=== PATIENT | female | born 1970 ===

== ENCOUNTER 2021-08-02 09:36 | Outpatient (CLI) | payer BC, SELFPAY ==
--- NOTE | 2021-08-02 09:15 | DI.RAD_ITS ---
Exam(s) XR HIP LT COMPLETE AP PELVIS EXAM: XR HIP LT COMPLETE AP PELVIS CLINICAL HISTORY: preoperative evaluation TECHNIQUE: COMPARISON: CR ORTHO HIP LEFT 1VIEW from 11/10/2019 FINDINGS: Three views were obtained. There are 3 fixation screws in the intertrochanteric portion of the left femur. There is marked deformity of the femoral head and neck. No acute fracture or dislocation efrain ntified. There are severe degenerative changes of the left hip. Mild degenerative changes of the ri ght hip noted as well. IMPRESSION: RADIATION DOSE DELIVERED: Total DLP
== END 2021-08-02 09:37 | disposition home or self-care (01) ==
LOC: DIORS 09:37
PROVIDERS: PCP Registered Nurse; Referring Provider Registered Nurse; Visit Provider Physician Assistant Surgical
DX: Z01.818 Encounter for other preprocedural examination (principal); M16.12 Unilateral primary osteoarthritis, left hip
CPT/HCPCS: 73502

== ENCOUNTER 2021-09-09 03:33 | Outpatient (CLI) | payer BC, SELFPAY ==
[2021-09-09 11:36] LABS: HCT 39.4 % (36.0-46.0); HGB 12.7 g/dL (11.2-15.7); MCH 28.7 pg (27.0-33.0); MCHC 32.2 % (32.0-36.0); MCV 89 fL (80-95); MPV 10.8 fL (8.0-11.0); Platelet Count 199 10^3/uL (130-400); RBC 4.42 10^6/uL (3.93-5.22); RDW 12.9 % (11.7-14.6); RDW-SD 42.1 fL; WBC 7.07 10^3/uL (4.4-10.8)
[2021-09-09 12:09] LABS: Source Nasal/Nares
[2021-09-09 12:25] LABS: Anion Gap 5.7 mmol/L (3-11); BUN 18 mg/dL (7-18); CO2 30.3 mmol/L (21.0-32.0); Calcium 9.3 mg/dL (8.5-10.1); Chloride 104 mmol/L (98-107); Estimated GFR 58.22 (mL/min/1.73m2); Glucose 157 mg/dL (74-106); Sodium 140 mmol/L (136-145)
[2021-09-09 14:46] LABS: COVID-19 PCR Negative (Negative)
== END 2021-09-09 03:34 | disposition home or self-care (01) ==
LOC: LBO 03:33
PROVIDERS: PCP Registered Nurse; Visit Provider Student in an Organized Health Care Education/Training Program
DX: M25.552 Pain in left hip (principal); M16.12 Unilateral primary osteoarthritis, left hip; Z20.822 Contact with and (suspected) exposure to COVID-19; Z01.818 Encounter for other preprocedural examination; Z01.812 Encounter for preprocedural laboratory examination
CPT/HCPCS: 36415; 80048; 85027; 87635

== ENCOUNTER 2021-09-09 03:58 | Outpatient (CLI) | payer BC, SELFPAY | END 2021-09-09 03:59 | disposition home or self-care (01) | LOC: LBO 03:58 | PROVIDERS: PCP Registered Nurse; Visit Provider Student in an Organized Health Care Education/Training Program ==

== ENCOUNTER 2021-09-10 07:49 | Inpatient (IN) | payer BC, SELFPAY ==
[2021-09-10] VITALS (21 sets, daily range): BP systolic 116–159; BP diastolic 51–107; PULSE 74–115; RESP 12–26; TEMP 36.2–37.6; O2SAT 93–100; BMI 44.1
--- NOTE | 2021-09-10 | DI.RAD_ITS ---
Exam(s) XR HIP LT AP LAT ONLY EXAM: XR HIP LT AP LAT ONLY CLINICAL HISTORY: s/p L RHONDA. TECHNIQUE: 2D digital imaging was performed. Three images were obtained. AP and lateral views were obtained. COMPARISON: CR XR HIP LT COMPLETE AP PELVIS from 08/02/2021 FINDINGS: BONES: The patient is now status post left total hip replacement. No fracture or dislocation. JOINTS: The orthopedic hardware is in good position. SOFT TISSUE: Normal. IMPRESSION: Status post left THR. DATA REPOSITORY: RADIATION DOSE DELIVERED:
[2021-09-10] MEDS: Celecoxib 200 MG CAP 400 MG PO (07:44)
[2021-09-10] MEDS: Acetaminophen 500 MG TAB 1000 MG PO (07:44)
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
[2021-09-10] MEDS: Lactated Ringers 1,000 ML 80 ML IV ×3 (08:31→21:11)
[2021-09-10] MEDS: ceFAZolin 2 GM/50 ML BAG IVPB (11:05)
[2021-09-10] MEDS: Tranexamic Acid 1,000 MG/10 ML VIAL 1000 MG (15:06)
--- NOTE | 2021-09-10 16:20 | ROE_ITS ---
Date of service: 09/10/21 Time of Service: 16:20 Operative Note Operative Note DATE OF PROCEDURE: 09/10/21 PRE-OP DIAGNOSIS: Left Hip Arthritis with Deformity and Hardware POST-OP DIAGNOSIS: same PROCEDURE: Left posterior hip replacement with removal of hardware requiring secondary dissection and intraoperative navigation. SURGEON: Marco Antonio Becker WIG SALES CONSULTANT: Karolina Lundy ANESTHESIA TYPE: General LMA/ETT Refer to Anesthesia Record ESTIMATED BLOOD LOSS: 1,500 PATHOLOGY: none sent TOURNIQUET TIME: 0 COMPLICATIONS: None Patient was transported to: PACU Patient's condition: stable Implants: 1. Depuy Bimentum Dual Mobiliity Acetabular Component, 49mm 2. Depuy Bimentum [id number] Acetabular Liner 3. Depuy Corail 125 Standard Stem, Size 11 4. Depuy Altrex Ceramic Femoral Head, 28+1.5mm Indications: Luna is a 50-year-old who has had debilitating pain from her left hip with notable deformity and shortening of the left leg. 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 She has been having worsening pain about the left hip with notable arthritis and deformity. She is having difficulty functioning with daily activities and therefore I did offer hip replacement. I reviewed the risk of the procedure to include bleeding, infection, pain, stiffness, damage to nerves and vessels, damage to muscle and tendons. I also discussed the complexity of removing this hardware which has little data about how to remove it except for some case reports about it being very difficult and challenging. This is increase the risk for fracture of the femur. Additionally, the deformity of her femoral head and neck also leads increased difficulties with component placement and increasing risk of instability therefore prompting me to use a dual mobility component. Findings: The 3 Horner pins were difficult to identify. There was significant bony overgrowth over the edge of the pins. However, these were not identified and bones around the heads of the pin was cleared. A posterior hip approach was then performed. This was challenging given the significant deformity of the femoral head and his close proximity to the greater trochanter. With the hip dislocated the bone was removed and the pins were identified. They were then manually backed out from inside the hip and then backed out the remainder of the way from the lateral femur. This process took multiple iterations it was very challenging. A posterior hip was then performed with a dual mobility acetabulum. Procedure Description: Luna was greeted in the preoperative holding area. The identity was confirmed with the correct site and side. The consent was reviewed with the patient and signed. History and physical was updated. The patient was taken back to the operating room. A general anesthetic was administered. The patient was then positioned into the right lateral decubitus position for access to the left hip. All bony prominences well-padded. The patient was secured with foam hip positioner pads. The left hip was prepped with ChloraPrep and draped in a standard fashion. A secondary prep was then performed on the left hip prior to placement of Ioband. Prophylactic antibiotics in the form of Cefazolin were administered. A timeout was performed for safe surgery. An approximately 14 cm incision was made overlying the posterior lateral hip, posterior to the previous incision for her slipped capital femoral epiphysis. This was centered over the vastus ridge equally proximal to the tip of the grea ter trochanter as well as distal. The skin was incised sharply. Bleeding was stopped with light cautery. The iliotibial band was identified and cleared for better visualization. The iliotibial band was then incised longitudinally extending into the gluteus fascia and extending distally along the IT band. This was split bluntly and a Charnley retractor was inserted. We had excellent visualization of the lateral femur and the trochanteric bursa. There was notable bursitis with an enlarged and inflamed bursa. This was excised sharply with electrocautery and remnants debrided with a rongeur. C-arm fluoroscopy then utilized to identify the starting point for the 3 Horner pins. Once was identified the vastus fascia was incised and elevated distally, anteriorly, posteriorly. There is a complete coverage of bone in this area. Using the CT scan as a guide as well as the intraoperative fluoroscopy, I removed bone with a rongeur as well as curettes and osteotomes. I was able to identify the 3 Horner pins heads. However, this required significant time and was quite difficult given the thickness of bone, more than 4 to 5 mm in spots, over the pins head. There is also significant bleeding at this time with elevated blood pressures and bleeding from the muscle bellies and bone around these pins. Once the pin heads were identified bone from around the heads was cleared using curette and osteotome. Once the heads of these pins were fully identified the space around I then proceeded to the intra-articular portion of the case. The leg was brought into some internal rotation and the capsule torsional rotators were elevated off of the posterior lateral aspect of the femur. The capsule was incised and was quite thickened. The head was located almost adjacent to the trochanter with a short neck. There is notable deformity of the femoral head neck in this region. The capsule was fully incised so that the hip was fully dislocated. An elevator was placed underneath the proximal femur and the neck cut was initiated based on preoperative templating. It was carried through the posterior half of the neck until encountering the pins. I then used a series of osteotomes and rongeur to remove bone from around the pins himself to expose the pins. Bone was removed from the interdigitation of the threads on the pin. I then used vice recruitment and outreach assistant and screw removal hardware to grab onto the threaded pins and slowly rotate them, breaking adhesions to the bone and eventually being able to advance them out the lateral femur from within the hip space. This was continued until all 3 were backed out sufficiently. The hip was then externally rotated to access the heads of the pins in the lateral femur and remove them by slowly turning them counterclockwise. All 3 pins were able to be removed in this fashion without notable defect. Some bone from the femoral head and the osteophytes from around the femoral head and neck then used to fill some the defects in the lateral femur from the Horner pins. The leg was then brought back into a position of internal rotation and flexion and the femoral neck cut was visualized. The posterior portion of the neck had gotten somewhat damage from removal of the pins and the neck was left where is. Bone from the anterior neck was removed as these were large osteophytes. Another osteophytes were also removed. The lateral neck rent was also removed. While protecting the abductors. The leg was brought back to neutral position and the acetabular was exposed. The labrum was removed. Contrast from the cotyloid fossa was often removed. There is a large floor osteophyte. Starting with a 43 mm acetabular reamer from the Bimentum hip system. This was reamed down to the true floor. Reaming was then sequentially increased by 2 mm until there was excellent rim fit, 49 mm. The 49 mm Bimentum acetabular component was then opened on the back table. A portion of the peritoneal cocktail, which consisted of epinephrine, ropivacaine, clonidine, and ketorolac was then injected around the acetabulum. I made sure there is no soft tissue interposition around the rim of the acetabulum. The acetabular component was th en impacted maintaining about 45 degrees of abduction and about 15 degrees of anteversion. This had excellent purchase and the geotechnician was removed. Attention was then turned to the femur. At the femur At 90 degrees of internal rotation and some flexion as well as adduction and I had asked exposure of the proximal femur. A canal probe was inserted to ensure correct passage to the femoral canal. A box ostium was then utilized to create a starting position. The lateral neck remnant was removed with a rongeur and lateralization was performed with a rasp broach handle. I then started with a size 8 Corail broach. I sequentially broached to a size 11 making sure to maintain approximately 20 to 25 degrees of anteversion. Excellent purchase of the size 11. Based on the template I did place a 125 degree standard neck with a +1.5 head and a matching 49 x 28 acetabular trial. There was then reduced with good stability no shock. Previous x-ray of the hip was performed with the C arm for use in the [employer] hip navigation system. X-rays once again brought in and obtained for comparison to the previous x-ray and then integration into the computer system for determination of leg lengths and offset. Unfortunately, visualization was challenging. The computer system did seem to indicate that we had correctly improved the offset and increased leg length by about 10 mm. The legs were also checked resting against each other which seem to come close to recreating appropriate leg length. While this was going on the hip was irrigated with Surgiphor Betadine solution where it sat for at least 3 minutes and was irrigated with saline. Hip was then dislocated and the broach handle was removed. A portion of the periarticular cocktail was injected around the proximal femur. The size 11 DePuy Corail 125 degree standard stem was then inserted. The dual mobility system was assembled on the back table and then impacted onto the clean and dried trunnion. The hip was then reduced. With hip and some external rotation the posterior soft tissues and sore external rotators and capsule were then approximated and taken through drill holes on the posterior edge of the proximal femur. Further reapproximation of the capsule was performed to the edge of the abductor tendons. This was performed a #5 Ethibond. The holes from the nose pins over the lateral femur were inspected and any defect was filled with bone obtained during the surgery. These were impacted. The vastus lateralis fascia was then closed with a #1 Vicryl. The wound was once again thoroughly irrigated and the remnant of the peritoneal cocktail was injected into the soft tissues, periosteum, deep tissues, subcutaneous tissues, muscles. The child retractor was placed above the IT band and gluteus fascia's and the IT band and gluteus fascia was closed with a #0 Vicryl and a #2 STRATAFIX. The proximal aspect of the fascia is unable be closed as it was too tight and therefore was only closed just proximal to the tip the greater trochanter. Deep tissues were closed with 0 Vicryl and 2-0 Vicryl followed by a 3-0 Monocryl. The wound was reinforced with skin glue and Steri-Strips followed by Mepilex silver dressing. At the end the case there is no significant bleeding. There is no notable complications except for increased duration for removal of this pins with the increased blood loss. She was awake from anesthesia and transferred back to the hospital bed. A abductor pillow was placed while she is still recovering from anesthesia. I will check a x-ray and hemoglobin in the PACU to ensure the hip was reduced and her blood loss has not resulted in significant anemia. She will be admitted to the hospital for observation and pain control along with physical therapy in the morning she is weightbearing as tolerated with the only precaution to keep the knees wide in the hips.
[2021-09-10] MEDS: fentaNYL 100 MCG/2 ML VIAL IVP ×2 (17:05→17:12)
[2021-09-10] MEDS: LORazepam 20 MG/10 ML VIAL IVP ×2 (17:18→19:24)
[2021-09-10 17:21] LABS: HCT 36.6 % (36.0-46.0); HGB 12.4 g/dL (11.2-15.7)
--- NOTE | 2021-09-10 17:57 | W.ANESPOSTOP ---
Postoperative Evaluation Date, Time and Location Date Performed: 09/10/21 Time Performed: 17:57 Patient Location: PACU Vital Signs Most Recent Imported Vital Signs: Most Recent Vital Signs Temp Pulse Resp BP Pulse Ox 36.8 C 90 14 125/87 93 09/10/21 17:35 09/10/21 17:35 09/10/21 17:35 09/10/21 17:35 09/10/21 17:35 Pain Score Most Recent Pain Score: Most Recent Pain Score Pain Level 5 09/10/21 17:35 Assessment Mental Status: Arousable with meaningful communication Airway and Respiratory Function: Patent airway with normal (patient baseline) respiratory exam Cardiovascular Function: Hemodynamically Stable Hydration Status: Adequately Hydrated Nausea & Vomiting: No Nausea or Vomiting Pain: Pain is Moderate or Severe Postoperative Pain Management: Pain being addressed with medication Peripheral Nerve Block: Patient did not receive a nerve block Postoperative Comments:: lorazapam/fentanyl/ketamine given from pain.
[2021-09-10] MEDS: ceFAZolin 1 GM/50 ML BAG IVPB (18:55)
[2021-09-10] MEDS: HYDROmorphone 2 MG/ML VIAL IVP ×4 (18:58→19:36)
[2021-09-10] MEDS: Omeprazole 20 MG CAPCR PO (21:12)
[2021-09-10] MEDS: Celecoxib 200 MG CAP PO (21:12)
[2021-09-10] MEDS: oxyCODONE 5 MG TAB PO (21:12)
[2021-09-10] MEDS: Gabapentin 300 MG CAP PO (22:37)
[2021-09-11] VITALS (12 sets, daily range): BP systolic 92–146; BP diastolic 58–88; PULSE 81–120; RESP 14–18; TEMP 36.9–38.3; O2SAT 94–98
[2021-09-11] MEDS: HYDROmorphone 2 MG/ML SYR 1 MG IVP ×2 (00:26→06:37)
[2021-09-11] MEDS: ceFAZolin 1 GM/50 ML BAG IVPB ×2 (01:46→09:59)
[2021-09-11] MEDS: oxyCODONE 5 MG TAB PO ×2 (01:47→05:51)
[2021-09-11 06:54] LABS: HGB 9.3 g/dL (11.2-15.7); MCH 29.3 pg (27.0-33.0); MCHC 33.2 % (32.0-36.0); MCV 88 fL (80-95); MPV 10.6 fL (8.0-11.0); Platelet Count 183 10^3/uL (130-400); RBC 3.17 10^6/uL (3.93-5.22); RDW-SD 41.9 fL; WBC 12.05 10^3/uL (4.4-10.8)
[2021-09-11 07:05] LABS: Anion Gap 6.8 mmol/L (3-11); BUN 22 mg/dL (7-18); CO2 28.2 mmol/L (21.0-32.0); Calcium 8.5 mg/dL (8.5-10.1); Chloride 100 mmol/L (98-107); Estimated GFR 58.22 (mL/min/1.73m2); Glucose 166 mg/dL (74-106); Potassium 4.4 mmol/L (3.5-5.1); Sodium 135 mmol/L (136-145)
--- NOTE | 2021-09-11 07:30 | W.PM.PROGNOT ---
Date of Service Date of service: 09/11/21 Time of Service: 07:30 Assessment and Plan Assessment and plan (1) Chronic pain: Status: Chronic Assessment and plan: Continue with home methadone dose. Her chronic pain, especially of her lower back and associated with fibromyalgia will lead to some increased difficulty with treating the acute pain from surgery. We will continue to treat with multi modalities. (2) Anxiety disorder: Status: Acute Assessment and plan: We will consider the use of Valium to help treat some of her anxiety along with pain and spasms. (3) Osteoarthritis of left hip: Status: Acute Assessment and plan: Status post hardware removal and left hip replacement via posterior approach. No acute complications appreciated this morning. Sciatic nerve function is intact which is the greatest concern given the lengthening performed and the posterior approach. Her pain is more global around the hip and likely related to soft tissue stretching and injury from the surgery itself including position or placement. I do expect this all to slowly improve. She is weightbearing as tolerated. Her only precaution is to keep the knees wider than the hips. Physical therapy consult today. Aspirin 81 mg twice daily for DVT prophylaxis. Complete 3 doses of postoperative cefazolin. (4) Postoperative pain, acute, hip: Status: Acute Assessment and plan: Luna reports 10 out of 10 pain. She also has significant pain behaviors likely associate with chronic pain and anxiety. At this point, I am going to increase how we are treating her pain. I am going to add on Valium 5 mg p.o. Additionally, I will switch her Celebrex to ketorolac IV. I will also increase her hydromorphone dose and increase her oxycodone dose. There is a potential for sedation for which she should be monitored. However, I am hoping that we can treat this pain more aggressively and then transition to a less aggressive home pain control protocol. (5) Acute blood loss anemia: Status: Acute Assessment and plan: Hemoglobin dropped to 9.7. Still stable hemodynamically. However, given the acute drop I will perform a type and screen today and schedule a redraw of her hemoglobin at 1600. Subjective Subjective Interval history since last seen: Luna reports significant pain. She describes the entire left leg is hurting in addition to her neck and her back. When asked more specifically she says the joint pointing to an area anteriorly and slightly superiorly. She does report numbness and tingling although not specific. Per nurse report, she was tense and somewhat distraught overnight waxing and waning with medications. However, tolerated the maximum medications without significant improvement nor ill effects. Exam Narrative Exam Narrative: Laying supine in the hospital bed. Left leg is appropriate position with no significant malrotation and of appropriate length. Leg lengths appear to be equal. Dressing about the left lower extremity is clean dry and intact. There is some ecchymosis seen over the ASIS with sensitivity over the anterior hip muscles and the lower aspect of the abdomen. She is extremely tense and is unable to relax for any real evaluation of her left hip. However, I am able to demonstrate 30 degrees of internal rotation and 20 degrees of external rotation and 70 degrees of flexion although she is guarding for the entire exam. She endorses full sensation over the femoral nerve anesthetic nerve distributions. She is able demonstrate active great toe extension and ankle dorsiflexion as well as flexion and eversion of the ankle. Objective Last Vital Signs Temp 37.2 C 09/11/21 04:05 Pulse 102 H 09/11/21 02:44 Resp 16 09/11/21 04:05 BP 145/77 H 09/11/21 02:44 Pulse Ox 95 09/11/21 04:05 Laboratory Results - last 24 hr 09/10/21 09/11/21 09/11/21 17:05 06:30 06:30 WBC 12.05 H RBC 3.17 L Hgb 12.4 9.3 L D Hct 36.6 28.0 L MCV 88 MCH 29.3 MCHC 33.2 RDW 13.0 Plt Count 183 MPV 10.6 Sodium 135 L Potassium 4.4 Chloride 100 Carbon Dioxide 28.2 Anion Gap 6.8 BUN 22 H Creatinine 1.0 Estimated GFR/1.73 m2 58.22 Glucose 166 H Calcium 8.5
[2021-09-11] MEDS: Acetaminophen 500 MG TAB 1000 MG PO ×3 (07:48→21:23)
[2021-09-11] MEDS: Aspirin E.C. 81 MG TABEC PO ×2 (07:49→21:23)
[2021-09-11] MEDS: Normal Saline Flush 10 ML SYR IV ×4 (07:49→14:24)
[2021-09-11] MEDS: Dexamethasone 4 MG/ML VIAL IVP (07:49)
[2021-09-11] MEDS: diazePAM 5 MG TAB PO ×2 (07:49→17:29)
[2021-09-11] MEDS: Lisinopril 10 MG TAB PO (07:49)
[2021-09-11] MEDS: Docusate Sodium 100 MG CAP PO ×2 (07:49→21:23)
[2021-09-11] MEDS: Omeprazole 20 MG CAPCR PO ×2 (07:49→21:23)
[2021-09-11] MEDS: Ketorolac 15 MG/ML VIAL IVP ×3 (08:23→21:24)
[2021-09-11] MEDS: Normal Saline 1,000 ML 125 ML IV (08:23)
--- NOTE | 2021-09-11 09:47 | PT.INIE ---
Date of service: 09/11/21 Time of Service: 09:47 PT Notes Visit Reasons: Left hip DJD Physical Therapy Inpatient Initial Evaluation Date: 09/11/2021 Referring Doctor: Marco Antonio Becker MD PT Orders: PT CONSULT: Eval/Treat Precautions: Fall. Standard. WBAT on L LE with AD. 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 She is diagnosed with osteoarthritis of the left hip and is status post hardware explant and left total hip replacement (posterior approach) on postoperative day 1. PMHX: Medical History?(Updated 08/07/21 @ 06:46 by Marco Antonio Becker MD) Atrophic vaginitis Breast lump Sleep disorder Social History/Home Situation: Lives with in [place] with no steps to enter. Modified independent with FWW for all mobility ADLs. Occasionally uses the SPC as tolerated. Equipment Owned/DME: FWW, SPC Subjective: Patient reports 8-9/10 pain at rest, subsided with walking. States that in the old house they had a lot of stairs and she has fallen 5-6x on them over the past year. Agreeable to slowly getting out of bed with PT. Nurse Corry came in to give Oxycodone for patient prior to walking. Objective: General Observation: Supine in bed. IV access in R UE. TEDS in B legs. Cold pack to L hip. Mental Status: Alert and oriented as to person, place, time, and purpose. Able to pay attention, focus, and respond appropriately. Pain: 8-9/10 in L hip Vital Signs: WNL as closely monitored by nursing staff ROM: Right Lower Extremity: Hip flexion WFL. Hip abduction WFL. Knee flexion WFL. Ankle dorsiflexion WFL. Ankle plantarflexion WFL. Left Lower Extremity: Hip flexion lacks about 50% of AROM due to pain. Hip abduction lacks about 50% of AROM due to pain. Knee flexion WFL. Ankle dorsiflexion WFL. Ankle plantarflexion WFL. Strength: Right Lower Extremity: Hip flexors 5/5. Hip abductors 5/5. Knee flexors 5/5. Knee extensors 5/5. Ankle dorsiflexors 5/5. Ankle plantarflexors 5/5. Left Lower Extremity: Hip flexors 3-/5. Hip abductors 3-/5. Knee flexors 4/5. Knee extensors 4-/5. Ankle dorsiflexors 5/5. Ankle plantarflexors 5/5. Bed Mobility/Transfers: Supine to sit minimal assist to L LE, HOB at 45 degrees Sit to stand from EOB contact guard assist, bed height increased to minimize pain Stand to sit contact guard assist Bed to bedside commode contact guard assist Bed to reclining chair contact guard assist Gait: Instructed patient with level surface ambulation of 80 feet feet requiring contact guard assist with wheelchair follow. Christelle decreased. Gait antalgic. Able to stand and push down on walker half of the time and then leans forward onto walker handle to off load L hip due to pain the rest of the time as she gets tired. No increase in pain level with walking. Denies headache, chest pain, and dizziness throughout. Step-to gait pattern. Balance: Static Sitting: Normal Dynamic Sitting: Good Static Standing: Fair Dynamic Standing: Fair Special Tests: Mobility Limitations Standardized Measure [facility] AM-PAC 6 clicks Basic Mobility Inpatient Short Form: Raw Score: 14 CMS Score: 16% deficit Informed Consent/Education: Patient was instructed in purpose of PT consult and plan of care. Agreeable to proceed with established PT POC to achieve personal goals. Assessment: Pain intensity and chronic neck/back pain limiting mobility performance. Will require pre-medication for PT sessions. Will assess need for platform walker this afternoon. Patient presents with clinical signs and symptoms consistent with current/admitting diagnoses that have resulted to mobility limitations, gait instability, generalized weakness, and overall ADL decline as demonstrated by the following impairment level findings: 1. Decreased strength to L hip major muscle groups 2. Impaired sitting/standing balance 3. Impaired activity tolerance 4. Limitation of joint range of motion in L hip 5. Pain in L hip 6. Anxiety Impairments are contributing to the following functional limitations: 1. Decline in bed mobility skills 2. Decline in transfer skills 3. Difficulty with ambulation without assistive device and physical assistance 4. Increased completion time for mobility ADL performance 5. Increased risk for falls 6. Difficulty with managing steps alone safely Patient is assessed as a 96428 moderate complexity based on the following: History: 50-year-old female with past medical history as indicated above Examination: Demonstrable impairment in strength, balance, and mobility level with underlying impairments and functional limitations as exhibited above as well as deficit score of 61% utilizing the [facility] Mobility Inpatient Short Form Presentation: Evolving Decision Makin moderate complexity Goals: Goals X1 week 1. Supine-Sit independent 2. Sit-Supine independent 3. Sit-Stand independent 4. Stand-Sit independent with FWW 5. Bed-Chair independent with FWW 6. Chair-Bed independent with FWW 7. Independent gait on level surface with use of FWW for at least 300 feet without report of pain nor dyspnea 9. Good static and dynamic standing balance/tolerance Plan of Care/Treatment Plan: 1-2x/day, 7 days/week x 1 week. Plan of care has been reviewed with the IMPORT CUSTOMER SERVICE MANAGER providing the service under Physical Therapy direction. Initiate Physical Therapy intervention for pain management as needed, strengthening, bed mobility, transfers, gait, stairs, balance training, and use of assistive device. DISCHARGE RECOMMENDATIONS: [] Home with no services [] [X] Home with services. Home when medically cleared by orthopod. Patient will benefit from home health PT services in order to progress mobility level using least restrictive assistive ambulatory device, assess home safety, identify additional equipment needs, and establish a functional maintenance program that will increase ability of patient to remain at home. [] Home with outpatient PT [] [] SNF for continued rehabilitation [] [] [facility] [] [] SNF versus LTC based on ability to participate and progress [] TREATMENT CODE/TIME: 92407 x 25 minutes, 45046 x 15 minutes beginning at 9:47 AM. Thank you for the opportunity to participate in the care of this patient. Maggie Rivera PT, DPT, CLT [facility] [place], [place]
[2021-09-11] MEDS: oxyCODONE 10 MG TAB 20 MG PO (09:58)
[2021-09-11] MEDS: Methadone Liquid 10 MG/ML 50 MG PO (10:35)
--- NOTE | 2021-09-11 10:48 | INITIAL_ITS ---
- If Service Date Differs Date of service: 09/11/21 Time of Service: 10:48 Care Management Initial Assess REASON FOR HOSPITALIZATION:: left posterior hip replacement PAST MEDICAL HISTORY/PAST SURGICAL HISTORY:: Medical History (Updated 08/07/21 @ 06:46 by Marco Antonio Becker MD). Retained orthopedic hardware (Acute). Osteoarthritis of left hip (Acute). Fibromyalgia (Acute). 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 GERD (gastroesophageal reflux disease) (Chronic). COPD (chronic obstructive pulmonary disease) (Chronic). Asthma (Chronic). Chronic pain (Chronic). Depressive disorder (Chronic). Anxiety disorder (Acute). Severe obesity (Acute) PREVIOUS FUNCTIONAL STATUS/SOCIAL/FAMILY SUPPORTS:: Luna lives in an apartment in [place], [place] with her Tyler and one of their sons and a grandson and granddaughter. They also have another son who has children. 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 She uses a cane and a walker and does not receive any community services. CURRENT FUNCTIONAL STATUS:: Luna was sitting up in a chair when CM met with her. She was pleasant in interactiuon and agreeable to conversation. Luna sh ared some of her medical history and the challenges that she has had with the pain and ambulatory dysfunction associated with her hip. She continues to have pain post-operastrively but stated that it is better today than it was last night. Luna has concerns about finances as she will need to be out of work for several weeks. She completed [facility] paperwork with her employer before surgery and understands that she will be eligible for some sort of short term disability but is not sure how much she will receive. ADVANCE DIRECTIVES:: none on file Has patient been provided with info about the portal/API?: Yes Did the patient sign up for the portal?: No CODE STATUS:: Full Code INSURANCE COVERAGE / FINANCIAL ISSUES:: [employer] CURRENT HOME/COMMUNITY SERVICES/EQUIPMENT:: cane and walker PRIMARY CARE PHYSICIAN:: Krysten Gentile POTENTIAL DISCHARGE NEEDS:: Follow up with community providers and plan of care PATIENT/FAMILY EDUCATION NEEDS:: Review of discharge instructions, limitations, activity. follow up plan, [employer] TRANSPORTATION:: via private vehicle PLAN:: Luna will likely be discharged home, possibly with new home health services. She will follow up with her community providers and plan of care and transport with family. CM will support Luna and assess for discharge needs.
[2021-09-11] MEDS: HYDROmorphone 2 MG/ML SYR IVP (12:00)
--- NOTE | 2021-09-11 12:00 | PT.INTREAT ---
PT Notes Visit Reasons: Left hip DJD SUBJECTIVE: Pt seen for the second time this morning, pt reports LLE pain but was agreeable to participating with therapy. OBJECTIVE: ? PAIN: Pt pain on LLE surgical site. ? BED MOBILITY/TRANSFERS? Sit-supine: SBA Sit-stand: SBA? Stand-sit: SBA? GAIT? Assistive Device: FWW? Weight bearing: WBAT Assist: CGA? Distance: 15'+15' going in and out of toilet. ? Deviation: Antalgic gait on LLE. ? THEREX: Pt provided with illustrated handout and visual and verbal cue for guidance with exercises. Answered patient questions. Patient receptive to education and reports that she understands the instructions. Pt also informed that instructions are available if she downloads the avelina for her smart phone and use the [employer] code for [employer]. ASSESSMENT:? Pt reminders for hip precautions and pt was able to tolerate and demonstrate exercises using illustrated copy provided. PLAN: Continue with global strengthening and general conditioning for improved activity tolerance and safety with mobility to reduce risks for falls at home. TREATMENT CODE/TIME: 25 minutes; 23519 11:35am
--- NOTE | 2021-09-11 15:24 | PTTR_ITS ---
Date of service: 09/11/21 Time of Service: 15:24 PT Notes Visit Reasons: Left hip DJD Physical Therapy Inpatient Treatment Note Date: 09/11/2021 Precautions: Fall. Standard. WBAT on L LE with AD. Keep knees wider than the hips while in chair or bed, may use abduction pillow for optimal positioning. Subjective: Reported 6/10 pain in L hip. Pain in neck at 7-8/10, states that this comes and goes. Also complained of being nauseated but is agreeable to working with PT. MOLD SWABBER who just took her vital signs says all her numbers are okay. Objective: General Observation: Seated on bedsdie chair since this provider left her around 10:30 AM.? IV access in R UE.? TEDS in B legs.? Cold pack to L hip.? Mental Status: Alert and oriented as to person, place, time, and purpose. Able to pay attention, focus, and respond appropriately. Pain: 6/10 in L hip; 7-8/10 in neck Vital Signs: WNL as closely monitored by nursing staff Bed Mobility/Transfers: Sit to stand from bedside chair stand by assist Stand to sit onto wheelchair and EOB contact guard assist Sit to supine from left side of bed required minimal assist to L LE to minimize pain Gait: Instructed patient with level surface ambulation of 80 feet + 80 feet requiring contact guard assist with wheelchair follow. Christelle decreased. Gait antalgic.? Now more able to tolerate pushing onto walker handles with hands, just needed to rest on her forearms twice due to fatigue. Nausea persisted until after PT session. MELANIE was requested to verify with nurse if patient has been give her Omeprazole, per patient request. Balance: Static Sitting: Normal Dynamic Sitting: Good Static Standing: Fair Dynamic Standing: Fair Assessment: Improving pain tolerance in L surgical site. Distance walked increased despite hip and recurrent neck pain. Continue to pre-medicate for pain for PT session. Provide activity to patient's tolerance. DISCHARGE RECOMMENDATIONS: [] ? Home with no services [] [X] ? Home with services. Home when medically cleared by orthopod.? Patient will benefit from home health PT services in order to progress mobility level using least restrictive assistive ambulatory device, assess home safety, identify additional equipment needs, and establish a functional maintenance program that will increase ability of patient to remain at home.? [] ? Home with outpatient PT [] [] ? SNF for continued rehabilitation [] [] ? [facility] [] [] ? SNF versus LTC based on ability to participate and progress [] TREATMENT CODE/TIME:? 20695 x 29 minutes beginning at 15:24 PM.
[2021-09-11] MEDS: oxyCODONE 10 MG TAB PO ×2 (17:30→21:23)
[2021-09-11 17:47] LABS: HCT 23.5 % (36.0-46.0); HGB 7.7 g/dL (11.2-15.7)
[2021-09-11] MEDS: Gabapentin 300 MG CAP PO (21:23)
[2021-09-11] MEDS: diphenhydrAMINE 25 MG CAP PO (21:23)
[2021-09-11] MEDS: Diclofenac 1% Gel 100 GM TUBE TP (21:49)
[2021-09-12 00:36] VITALS: BP 96/62; PULSE 83; RESP 14; TEMP 36.9; O2SAT 95
[2021-09-12 00:38] VITALS: BP 96/62; PULSE 83; RESP 14; TEMP 36.9; O2SAT 95
[2021-09-12] MEDS: Ketorolac 15 MG/ML VIAL IVP ×2 (02:33→07:34)
[2021-09-12 02:40] VITALS: BP 96/62; PULSE 83; RESP 14; TEMP 36.9; O2SAT 95
[2021-09-12] MEDS: diazePAM 5 MG TAB PO (02:45)
[2021-09-12] MEDS: oxyCODONE 10 MG TAB PO ×3 (02:45→11:30)
[2021-09-12 06:50] LABS: HCT 24.9 % (36.0-46.0); HGB 8.1 g/dL (11.2-15.7)
[2021-09-12] MEDS: Dexamethasone 4 MG/ML VIAL IVP (07:34)
[2021-09-12] MEDS: Omeprazole 20 MG CAPCR PO (07:34)
[2021-09-12] MEDS: Aspirin E.C. 81 MG TABEC PO (07:34)
[2021-09-12] MEDS: Acetaminophen 500 MG TAB 1000 MG PO (07:34)
[2021-09-12] MEDS: Normal Saline Flush 10 ML SYR IV (07:35)
[2021-09-12 07:40] VITALS: BP 98/57; PULSE 85; RESP 18; TEMP 37.3; O2SAT 100
[2021-09-12] MEDS: Diclofenac 1% Gel 100 GM TUBE TP ×2 (08:44→11:31)
[2021-09-12] MEDS: Methadone Liquid 10 MG/ML 50 MG PO (08:44)
--- NOTE | 2021-09-12 09:24 | DSE_ITS ---
Date of service: 09/12/21 Time of Service: 09:21 DS: Diagnosis Discharge Diagnosis (1) Retained orthopedic hardware: Status: Acute (2) Osteoarthritis of left hip: Status: Acute (3) Acute blood loss anemia: Status: Acute (4) Postoperative pain, acute, hip: Status: Acute Discharge Plan Disposition Patient Disposition: HOME W/HOME HEALTH SERVICE Condition: Good Discharge Details Reason For Visit: Left hip DJD Admit Date/Time: 09/10/21 07:49 Admit Provider: Marco Antonio Becker Attending Provider: Marco Antonio Becker Primary Care Provider: HUDSON PRECIADO Hospital Course Hospital Course: Patient was admitted to the medical/surgical floor following the procedure for pain control and monitoring. The surgery was tolerated well without any notable medical, surgical, or anesthetic complications except for increased duration and blood loss. Mobilization began postoperatively. She was voiding spontaneously. Vitals were stable. Hemoglobin on POD#1 was 7.7 down from 12.7 and thus she was transfused one unit. Pain control was challenging given her chronic pain issues and multiple locations of pain - hip, neck, and back. Multimodal treatment was able to obtain good pain relief. Physical therapy worked with the patient and was cleared for discharge home with home health services. No acute medical issues. Home Meds and New Rx's Prescriptions: New gabapentin 300 mg Capsule 300 mg PO HS Qty: 14 0RF diazepam 5 mg Tablet 5 mg PO TID PRN PRNQty: 15 0RF oxycodone 10 mg Tablet 10 mg PO Q4H PRN PRNQty: 30 0RF celecoxib 200 mg capsule 200 mg PO BID PRN (Reason: pain) Qty: 60 1RF aspirin 81 mg tablet,delayed release (DR/EC) 81 mg PO BID Qty: 60 0RF acetaminophen 500 mg tablet 1,000 mg PO Q8H PRN (Reason: pain) Qty: 90 3RF naloxone [Narcan] 4 mg/actuation spray,non-aerosol 4 mg intranasal Q2M PRNQty: 2 0RF Rx Instructions: spray 1 dose into ONE nostril; alternate nostrils w each dose until help arrives Continued albuterol sulfate [ProAir HFA] 90 mcg/actuation HFA aerosol inhaler 1 puff inhalation Q4H PRN methadone 10 mg/5 mL solution 50 mg PO DAILY Changed omeprazole 40 mg capsule,delayed release(DR/EC) 40 mg PO DAILY Qty: 30 0RF Held lisinopril 10 mg tablet 10 mg PO DAILY Hold Instructions: Resume on 09/16/21. Discontinued tizanidine 2 mg tablet 4 mg PO QHS PRN Discharge Instructions Additional Instructions: Total Hip Discharge Instructions Activity: The most important activity is to walk. You should try to take short walks a few times a day. You have no restrictions on movement or positioning, but do not try to force what you do. You will find some stiffness and weakness with hip flexion (lifting your knee). Do not try to strengthen this too early, continue to practice walking and stairs and this will come. - Outpatient physical therapy can be helpful to help return you to a normal gait and improve your flexibility and strength. This can start around 2 weeks. For some patients, it?s not necessary. Usually this is determined at the time of discharge or at the first post-operative visit. - You should wear the DAT hose on both legs for 2 weeks. Dressing: Keep the surgical dressing in place for at least one week. After the first week it may be removed and replace with light gauze and tape or nothing. It may get wet after 3 days but avoid soaking the dressing. If it gets wet, just lightly pat dry. Medications: - You should take Tylenol and an anti-inflammatory Celebrex as your primary pain control medications. If the Celebrex is too expensive or not covered, please call the office for another alternative (Advil/Ibuprofen or Naproxen/Aleve). - You have been prescribed a stronger pain medication Oxycodone for breakthrough pain, take as needed as prescribed. - You have also been prescribed a stomach acid reduction agent Omeprazole to help reduce stomach acid and reflux. - You also have been prescribed Diazepam for muscle spasm and anxiety. Take this as needed and as prescribed. - You also have been prescribed Gabapentin for nightime restlessness and nerve pain. - You will be taking Aspirin 81mg twice a day for DVT prevention unless instructed otherwise. - If you have constipation you should take Colace or Miralax (both [id number]). It takes most people 3-4 days to have a bowel movement. Follow-up: 2 weeks If you have any acute concerns or questions, please do not hesitate to contact the office at [phone]. You may contact Dr. Becker with any questions after hours through the hospital at [phone] or on his cell phone at [phone]. 1. Encounter Date and Reason I certify that Luna Linares was seen by Marco Antonio Becker MD on 09/12/21 and that I had a [id number] encounter with this patient that meets the physician face to face encounter requirements. 2. Clinical Findings Supporting Skilled Need and Homebound Status I certify that home health services are medically necessary, include either intermittent intermediate and/or physical/speech therapy, and that this patient is homebound in that absences from the home require considerable and taxing effort and are infrequent or of short duration, or are attributable to the need to receive medical care. X (a) Attached documentation from encounter provides clinical findings supporting skilled need and homebound status (including what assistance patient requires to leave the home). The encounter with the patient was in whole, or in part, for the following medical condition, which is the primary reason for home health care: Left hip DJD Residential: To assist with multiple medication management in the setting of acute postoperative pain on chronic pain. Multi-modality treatment with mult iple medications. Physical Therapy: To help with strengthening and ambulatory capacity s/p left hip replacement (posterior approach) and removal of hardware. Only precaution is to keep the knees wider than the hips. WBAT with assistive devices. Speech Therapy: Homebound: Luna is homebound given her notable pain and weakness and difficulty with ambulation without assistance. She is unable to leave her home unassisted. 3. Certification and Authentication I certify that I composed the above information based on my clinical judgement relating to this patient's medical condition and, if applicable, clinical findings communicated to me by the NPP or inpatient physician who performed the Home Health Referral. All further orders will be obtained through Dr. Becker Referrals: Marco Antonio Becker MD [ [facility] STAFF PHYSICIAN] - Activity:: Activity as Tolerated Equipment/Supplies:: Walker Diet:: As Tolerated Discharge Orders Discharge Orders: Discharge Order (Routine); Ordered 09/12/21 Ordered By: Marco Antonio Becker DS: Summary Time Spent with Patient providing and/or coordinating discharge services: Less than 30 minutes Status at Discharge Functional status at discharge: uses cane/walker Overall status at discharge: patient is progressing back to baseline Mental Status: mental status grossly normal Speech and Movement: speech and movement normal Mood: congruent mood Affect: normal affect Exam Extrem Other: Sittin gin chair. LLE dressing c/d/i. +ADF/APF/EHL/FHL. SILT DP/SP/Tib/Fem. Psych Mental Status: mental status grossly normal Speech and Movement: speech and movement normal Mood: congruent mood Affect: normal affect DS: Data Vitals/I&O Vitals and I&O: Vital Signs Temperature 97.9 F 09/10/21 07:30 Pulse 74 09/10/21 07:30 Respiratory Rate 20 09/10/21 07:30 Respiratory Depth Deep 09/10/21 07:30 Blood Pressure 138/87 09/10/21 07:30 Pulse Oximetry 97 09/10/21 07:30 Oxygen Delivery Method Room Air 09/10/21 07:30 Oxygen Flow Rate 0 09/10/21 07:30 Pain Level 6 09/10/21 07:30 Intake & Output 09/09/21 09/09/21 09/10/21 11:59 23:59 11:59 Weight 250 lb 250 lb 249 lb 9.012 oz PFSH All Active Problems (Updated 09/11/21 @ 07:34 by Marco Antonio Becker MD) Acute blood loss anemia (Acute) Postoperative pain, acute, hip (Acute) Severe obesity (Acute) Anxiety disorder (Acute) Depressive disorder (Chronic) Chronic pain (Chronic) Asthma (Chronic) COPD (chronic obstructive pulmonary disease) (Chronic) GERD (gastroesophageal reflux disease) (Chronic) Spondylosis without myelopathy (Acute) Fibromyalgia (Acute) Osteoarthritis of left hip (Acute) s/p hardware removal and RHONDA (09/10/21) Retained orthopedic hardware (Acute) Medical History (Updated 09/11/21 @ 07:34 by Marco Antonio Becker MD) Anxiety Atrophic vaginitis Breast lump Chronic pain Methadone for chronic pain COPD (chronic obstructive pulmonary disease) Depression Fibromyalgia GERD (gastroesophageal reflux disease) Hyperlipemia Hypertension Opioid dependence in remission Pt. states she has been clean for a few years Pre-diabetes Pre-diabetes Severe obesity Sleep disorder Spondylosis without myelopathy Surgical History History of cholecystectomy History of colonoscopy History of esophagogastroduodenoscopy (EGD) for hiatal hernia History of surgery left hip surgery for treatment of SCFE contains hardware. History of surgery oopherectomy S/P surgery on nasal septum Social History Smoking/Tobacco Use Status: Former Tobacco Use Quit Date: 02/16/17 Smoking risk assessment performed?: Yes Alcohol Intake: former Drug use: Current Sobriety Do you feel safe at home: Yes Do you feel safe in your relationship?: Yes
--- NOTE | 2021-09-12 09:44 | PT.INTREAT ---
Date of service: 09/12/21 Time of Service: 08:58 PT Notes Visit Reasons: Left hip DJD Inpatient Physical Therapy Treatment Note [facility] Date: 09/12/2021 PRECAUTIONS: Fall, WBAT L, no hip adduction past midline SUBJECTIVE: Luna is pleasant and agreeable to participating in PT. She reports that her is home to help her if she needs help. She is looking forward to discharging to home later today. OBJECTIVE: Issued FWW and fit to patient for personal use. Completed [facility] form and submitted to Care Management. PAIN: Patient c/o discomfort in L hip with bed mobility BED MOBILITY/TRANSFERS Supine-sit: S with HOB flat and use of leg rib stiffener and heel dipper Sit-supine: S with HOB flat Sit-stand: I Stand-sit: I Bed-Chair: S with FWW Chair-bed: S with FWW GAIT Assistive Device: FWW Weight bearing: WBAT L Assist: SBA-S Distance: 150' Deviation: Step-to gait pattern, standing rest t/o due to mild SOB and global fatigue THEREX: Patient was instructed in a LE strengthening and stabilization program, completed in both seated and long-sitting positions, to include: ankle pumps, quad sets, glute sets, heel slides (assisted), hip abduction (assisted), LAQ and hip flexion (assisted). STAIRS: Patient has ramp to enter, no need for stair training at this time. ASSESSMENT: Patient tolerated session well, although with some c/o increased discomfort with bed mobility. Bed mobility improved with use of leg rib stiffener and heel dipper support to supervision only. Patient also tolerated a progression in gait distance with FWW support, utilizing a step-to pattern with standing rests t/o due to global fatigue. PLAN: Patient to discharge to home later today, per provider. Recommend PT follow up upon discharge to home. TREATMENT CODE/TIME: 41 minutes; [id number] x2, [id number] (08:58)
--- NOTE | 2021-09-12 09:55 | CMDISCH_ITS ---
- If Service Date Differs Date of service: 09/12/21 Time of Service: 09:56 LACE Index Scoring Tool - Questions: Length of Stay (in days): 2 Acuity (Admit via E.D.?): No Comorbidities: Chronic Pulmonary Disease E.D. Visits: 1 - Answers: Total Score: 5 Risk of Readmission: Low Risk Care Management Discharge Reason for Hospitalization: left posterior hip replacement Discharge Plan: Luna will be discharged home with new home health services for nursing and PT through [facility]. She will follow up with her community providers and plan of care and transport with family. Patient/Family Education Needs: Review of discharge instructions, limitations, activity. follow up plan, Ask Me Three Services Needed at Discharge: Home Health Care Services
[2021-09-12 10:59] VITALS: BP 128/85; PULSE 90; RESP 18; TEMP 37.4; O2SAT 94
--- NOTE | 2021-09-16 18:10 | PT.INDS ---
Date of service: 09/16/21 PT Notes Visit Reasons: Left hip DJD Physical Therapy Discharge Summary Date: 09/16/2021 Dates of Service: 09/11/2021 through 09/12/2021 This is a clinical summary of care provided for the duration of dates listed above. No charge was made in the completion of this documentation. Referring Doctor:? Marco Antonio Becker,? PT Orders: PT CONSULT: Eval/Treat Precautions: Fall. Standard. WBAT on L LE with AD. Patient Profile/Admitting Diagnosis:? 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 She is diagnosed with osteoarthritis of the left hip and is status post hardware explant and left total hip replacement (posterior approach) on postoperative day 2 upon discharge. PMHX: Medical History?(Updated 08/07/21 @ 06:46 by Marco Antonio Becker MD) Atrophic vaginitis Breast lump Sleep disorder Social History/Home Situation: Lives with in a newly bought house in [place] with no steps to enter.? Modified independent with FWW for all mobility ADLs.? Occasionally uses the SPC as tolerated. Equipment Owned/DME: FWW, SPC Subjective: NT. See most recent BUSINESS CASE ANALYST notes. Objective: General Observation: NT. See most recent BUSINESS CASE ANALYST notes. Mental Status: NT. See most recent BUSINESS CASE ANALYST notes. Pain: NT. See most recent BUSINESS CASE ANALYST notes. Vital Signs: NT. See most recent BUSINESS CASE ANALYST notes. ROM: Right Lower Extremity: Hip flexion WFL. Hip abduction WFL. Knee flexion WFL. Ankle dorsiflexion WFL. Ankle plantarflexion WFL. Left Lower Extremity: Hip flexion lacks about 50% of AROM due to pain. Hip abduction lacks about 50% of AROM due to pain. Knee flexion WFL. Ankle dorsiflexion WFL. Ankle plantarflexion WFL. Strength: Right Lower Extremity: Hip flexors 5/5. Hip abductors 5/5. Knee flexors 5/5. Knee extensors 5/5. Ankle dorsiflexors 5/5. Ankle plantarflexors 5/5. Left Lower Extremity: Hip flexors 3-/5. Hip abductors 3-/5. Knee flexors 4/5. Knee extensors 4-/5. Ankle dorsiflexors 5/5. Ankle plantarflexors 5/5. BED MOBILITY/TRANSFERS? Supine-sit: S with HOB flat and use of leg music composition teacher? Sit-supine: S with HOB flat ? Sit-stand: I? Stand-sit: I ? Bed-Chair: S with FWW ? Chair-bed: S with FWW ? GAIT? Assistive Device: FWW ? Weight bearing: WBAT L Assist: SBA-S ? Distance:? 150' ? Deviation: Step-to gait pattern, standing rest t/o due to mild SOB and global fatigue ? STAIRS: Patient has ramp to enter, no need for stair training at this time. ? Balance: Static Sitting: Normal Dynamic Sitting: Good Static Standing: Fair Dynamic Standing: Fair Assessment: Patient presents with clinical signs and symptoms consistent with current/admitting diagnoses that have resulted to mobility limitations, gait instability, generalized weakness, and overall ADL decline as demonstrated by the following impairment level findings: 1.? Decreased strength to L hip major muscle groups 2.? Impaired sitting/standing balance 3.? Impaired activity tolerance 4.? Limitation of joint range of motion in L hip 5.? Pain in L hip 6.? Anxiety Impairments are contributing to the following functional limitations: 1.? Decline in bed mobility skills 2.? Decline in transfer skills 3.? Difficulty with ambulation without assistive device and physical assistance 4.? Increased completion time for mobility ADL performance 5.? Increased risk for falls 6.? Difficulty with managing steps alone safely Goals: Goals X1 week 1. Supine-Sit independent NOT MET 2. Sit-Supine independent NOT MET 3. Sit-Stand independent MET 4. Stand-Sit independent with FWW MET 5. Bed-Chair independent with FWW NOT MET 6. Chair-Bed independent with FWW NOT MET 7. Independent gait on level surface with use of FWW for at least 300 feet without report of pain nor dyspnea NOT MET 9. Good static and dynamic standing balance/tolerance NOT MET DISCHARGE RECOMMENDATIONS: [] ? Home with no services [] [X] ? Home with services. Home when medically cleared by orthopod.? Patient will benefit from home health PT services in order to progress mobility level using least restrictive assistive ambulatory device, assess home safety, identify additional equipment needs, and establish a functional maintenance program that will increase ability of patient to remain at home.? [] ? Home with outpatient PT [] [] ? SNF for continued rehabilitation [] [] ? Building Construction [employer]or Care [] [] ? SNF versus LTC based on ability to participate and progress [] TREATMENT CODE/TIME:? NC seen Thank you for the opportunity to participate in the care of this patient. Maggie Rivera PT, DPT, CLT [facility] [place], [place]
== END 2021-09-12 11:59 | disposition home health service (06) | DRG 470 ==
LOC: SUR 10:09 → MS 20:22
PROVIDERS: Nurse Anesthetist, Certified Registered; Admitting Provider Student in an Organized Health Care Education/Training Program; PCP Registered Nurse; Visit Provider Student in an Organized Health Care Education/Training Program
PROC: 0SRB04A Replacement of Left Hip Joint with Ceramic on Polyethylene Synthetic Substitute, Uncemented, Open Approach (ICD-10-PCS; CPT 27130; principal; 2021-09-10 11:00)
DX: M16.12 Unilateral primary osteoarthritis, left hip (principal); Z68.41 Body mass index [BMI] 40.0-44.9, adult; D62 Acute posthemorrhagic anemia; M96.810 Intraoperative hemorrhage and hematoma of a musculoskeletal structure complicating a musculoskeletal system procedure; Z47.2 Encounter for removal of internal fixation device; E66.01 Morbid (severe) obesity due to excess calories; F41.9 Anxiety disorder, unspecified; F32.A Depression, unspecified; J44.9 Chronic obstructive pulmonary disease, unspecified; K21.9 Gastro-esophageal reflux disease without esophagitis; M79.7 Fibromyalgia; M47.819 Spondylosis without myelopathy or radiculopathy, site unspecified; E78.5 Hyperlipidemia, unspecified; I10 Essential (primary) hypertension; F11.21 Opioid dependence, in remission; R73.03 Prediabetes; Z87.891 Personal history of nicotine dependence; G89.18 Other acute postprocedural pain; M25.552 Pain in left hip
CPT/HCPCS: 27130; 20985; 20680; 36415; 80048; 85027; 86850; 86900; 86901; 86920; 97110; 97162; 97530; 73502; 76000; 85014; 85018; J0690; J1100; J1170; J1885; J2250; J2405; J2704; J3010; J3490; P9016

== ENCOUNTER 2021-09-23 13:46 | Outpatient (CLI) | payer BC, SELFPAY ==
--- NOTE | 2021-09-23 12:45 | DI.RAD_ITS ---
Exam(s) XR HIP LT COMPLETE AP PELVIS EXAM: XR HIP LT COMPLETE AP PELVIS CLINICAL HISTORY: 1ST POST OP L RHONDA. TECHNIQUE: 2D digital imaging was performed. COMPARISON: CR XR HIP LT AP LAT ONLY from 09/10/2021 FINDINGS: Two views. No position alignment of the components of the recently placed left hip prosthesis. Fracture or loos ening evident. IMPRESSION: DATA REPOSITORY: RADIATION DOSE DELIVERED:
== END 2021-09-23 13:47 | disposition home or self-care (01) ==
LOC: DIORS 13:46
PROVIDERS: PCP Registered Nurse; Referring Provider Registered Nurse; Visit Provider Physician Assistant
DX: Z96.642 Presence of left artificial hip joint (principal)
CPT/HCPCS: 73502

== ENCOUNTER 2022-01-31 11:00 | Outpatient (CLI) | payer SELFPAY ==
--- NOTE | 2022-01-31 10:30 | DI.RAD_ITS ---
Exam(s) XR HIP LT AP LAT ONLY EXAM: XR HIP LT AP LAT ONLY CLINICAL HISTORY: pain about left hip after RHONDA. TECHNIQUE: 2D digital imaging was performed. COMPARISON: CR XR HIP LT COMPLETE AP PELVIS from 09/23/2021 FINDINGS: Two views: There is stable position alignment of the components of left hip prosthesis. No fractures nor loosen ing evident. IMPRESSION: Satisfactory stable appearance. DATA REPOSITORY: RADIATION DOSE DELIVERED:
== END 2022-01-31 11:01 | disposition home or self-care (01) ==
LOC: DIORS 11:00
PROVIDERS: PCP Registered Nurse; Referring Provider Registered Nurse; Visit Provider Student in an Organized Health Care Education/Training Program
DX: Z96.642 Presence of left artificial hip joint (principal); Z47.1 Aftercare following joint replacement surgery; M25.552 Pain in left hip
CPT/HCPCS: 73502

== ENCOUNTER → 2022-10-16 00:13 | Outpatient (CLI) | payer OTHER, SELFPAY ==
--- NOTE | 2022-10-16 08:22 | DI.MRI_ITS ---
Exam(s) MR LUMBAR SPINE WO EXAM: MR LUMBAR SPINE WO CLINICAL HISTORY: Radiculopathy to the left leg, lumbar radiculopathy, M54.16. TECHNIQUE: Multiplanar multisequence MRI of the Lumbar spine was performed. COMPARISON: MR MRI L-SPINE W/O from 04/04/2010 FINDINGS: Bones: The last intervertebral disc space is designated the L5/S1 level for the numbering purpose of this examination. The vertebral body heights are well maintained. There is disc space narrowing at L2-L3. There are endplate osteophytes at multiple levels of the lumbar spine. The signal characteri stics are unremarkable. Cord: The conus tip ends at the L1 level. It is of normal size and signal intensity. T12-L1: No disc herniations or bulges are present. No central spinal canal or neural foraminal stenos is. L1-2: No disc herniations or bulges are present. No central spinal canal or neural foraminal stenosis . L2-3: No disc herniations or bulges are present. No central spinal canal or neural foraminal stenosis . L3-4: No disc herniations or bulges are present. No central spinal canal or neural foraminal stenosis . L4-5: No focal disc herniation. There is a mild diffuse disc bulge. Mild degenerative changes of th e facets are present. No central spinal canal or neural foraminal stenosis. L5-S1: Mild diffuse disc bulge. There are degenerative changes of the facets. No significant centra l spinal canal stenosis or right neural foraminal stenosis is seen. There is mild left neural forami nal stenosis. Soft tissues: The visualized SI joints and sacrum are well maintained. The paraspinal soft tissues ar e unremarkable. IMPRESSION: Degenerative changes in the lumbar spine. There is mild left neural foraminal stenosis at L5-S1. DATA REPOSITORY:
== END ==
LOC: DI 00:13
PROVIDERS: PCP Registered Nurse; Visit Provider Preventive Medicine Occupational Medicine
DX: M99.63 Osseous and subluxation stenosis of intervertebral foramina of lumbar region (principal); M51.16 Intervertebral disc disorders with radiculopathy, lumbar region
CPT/HCPCS: 72148

== ENCOUNTER 2022-11-05 07:57 | Outpatient (CLI) | payer OTHER, SELFPAY ==
--- NOTE | 2022-11-05 06:00 | DI.RAD_ITS ---
Exam(s) XR PAIN CLINIC LUMBAR SP 2V EXAM: XR PAIN CLINIC LUMBAR SP 2V CLINICAL HISTORY: Dx: Lumbar Radiculopathy TECHNIQUE: 2D and realtime digital imaging was performed. CONTRAST MATERIAL: Refer to procedure report. COMPARISON: No exams were available for comparison FINDINGS: Fluoroscopy was provided for Dr. Stanton during the performance of a lumbar epidural steroid injection. Please refer to the procedure report for complete details. Ka,r=13.3 mGy IMPRESSION:
[2022-11-05 08:13] VITALS: BP 114/81; PULSE 75; RESP 20; TEMP 36.6; O2SAT 94
[2022-11-05 08:47] VITALS: BP 151/91; PULSE 78; RESP 22; O2SAT 96
--- NOTE | 2022-11-05 08:49 | PDOC.PAIN_ITS ---
Date of service: 11/05/22 Time of Service: 08:49 Pain Managment Procedure Note Procedure Note Procedure Note: PROCEDURE NOTE LUMBAR EPIDURAL STEROID INJECTION Date of Service: November 05, 2022 Patient:Luna Tucker? Provider: Wong Stanton DO, MPH Luna Linares has been referred to the [facility] for a lumbar epidural steroid injection. Pre-operative diagnosis: Lumbosacral Radiculopathy Post-operative diagnosis: Same Pre-Procedure Pain: VAS= 10 /10 with activity Functional goals: To be able to work and clean her house. Comments: I previously evaluated her on 10/01/22 and her symptoms have not changed. Luna was interviewed and the medical record was reviewed.? There were no medical, pharmacologic, radiographic or other structural contraindications to attempting fluoroscopically guided Lumbar epidural steroid injection.? Risks, potential side effects, indications, and potential benefits of the procedure were reviewed with Luna.? Questions and concerns were addressed.? After it was clear that Luna was fully informed about the procedure, the printed consent form was signed by the patient and myself.? Luna was placed in the prone position on the fluoroscopy table and automated blood pressure cuff and pulse oximeter applied. The skin entry point for entering/approaching the epidural space for the lumbar epidural steroid injection was marked. Following thorough chlorhexadine preparation of the skin and draping and 1% lidocaine infiltration of the skin entry point and subcutaneous tissues, an 18 gauge Touhy needle was placed and advanced under fluoroscopic guidance and with loss of resistance technique into the L5-S1 epidural space. Needle tip placement and depth were aided and confirmed by fluoroscopy. There was no paresthesia or return of blood or CSF through the needle. 1 mls of Omnipaque 240 was injected with clear epidural spread confirmed with fluoroscopy. 80 mg of Depo-Medrol was? injected. This was followed by 1 ml of preservative-free normal saline to flush the steroid out of the needle. There was no unusual discomfort expressed by Luna. The needle was withdrawn without difficulty. (49 mls of Omnipaque was wasted) Luna was observed and was without hemodynamic, neurologic, or allergic reactions.? Fluoroscopic images were digitally archived. Luna's vital signs were stable throughout the procedure and were as recorded in nursing records. Follow up plans and appointments were discussed with Luna. Post procedure instruction was given as documented in nursing records and having met discharge criteria Luna was discharged from the [facility]. COMMENTS: No apparent complications. Post-procedure pain: VAS= 0/10. Luna to contact [facility] as needed. If at least 50% improvement in pain and/or function for at least 3 months is achieved, this procedure can be repeated. I personally performed this entire procedure. WONG STANTON DO, MPH ABPMR-subspecialty board certification in Pain Medicine [facility]
[2022-11-05] MEDS: methylPREDNISolone ACETATE 80 MG/ML VIAL IJ (08:54)
[2022-11-05] MEDS: Omnipaque 240 MG/ML 50 ML BTL IJ (08:55)
== END 2022-11-05 07:58 | disposition home or self-care (01) ==
LOC: PC 07:58
PROVIDERS: PCP Registered Nurse; Visit Provider Preventive Medicine Occupational Medicine
DX: M54.17 Radiculopathy, lumbosacral region (principal)
CPT/HCPCS: 62323; 72100; J1040; Q9967

== ENCOUNTER → 2022-11-07 00:55 | Outpatient (CLI) | payer OTHER, SELFPAY ==
--- NOTE | 2022-11-07 | DI.MRI_ITS ---
Exam(s) MR BRAIN WO/W EXAM: MR BRAIN WO/W CLINICAL HISTORY: ARACHNOID CYST ABUTTING FRONTAL LOBE, ,g93.0. TECHNIQUE: Multiplanar multisequence MRI of the brain was performed. CONTRAST MATERIAL: IV Contrast: 20 ML of Dotarem contrast administered. COMPARISON: CT CT HEAD/BRAIN WO CONTRAST from 03/03/[address] HEAD/BRAIN WO CONTRAST from 10/10/2022 FINDINGS: VENTRICLES AND EXTRA AXIAL SPACES: Normal in size and morphology for the patient's age. Small amount of localized fluid seen in the anterior superior left temporal fossa which measures 2.6 cm transverse by 0.9 cm cephalocaudad by 1.5 cm AP. Does not exert mass effect upon the brain. No adjacent bony ch anges. HEMORRHAGE: None. CEREBRAL PARENCHYMA: No focus of restricted diffusion to suggest acute infarct. No space-occupying le theresa identified. MIDLINE SHIFT: None. BRAINSTEM/CEREBELLUM: Normal. CALVARIUM: Normal. ENHANCEMENT: No suspicious enhancement identified. VISUALIZED PARANASAL SINUSES/MASTOIDS: mucous retention at the floor of the right maxillary sinus. OTHER FINDINGS: Partially empty sella, unchanged. IMPRESSION: Small arachnoid cyst in the anterior left temporal fossa without visible mass effect upon the adjacen t temporal lobe. DATA REPOSITORY:
[2022-11-07] MEDS: Gadoterate meglumine 20 ML SYRINGE IVP (08:34)
[2022-11-07] MEDS: Normal Saline Flush 10 ML SYR IJ (08:35)
== END ==
PROVIDERS: PCP Registered Nurse; Visit Provider Registered Nurse
DX: G93.0 Cerebral cysts (principal)
CPT/HCPCS: 70553

== ENCOUNTER 2022-12-17 07:55 | Outpatient (CLI) | payer OTHER, SELFPAY ==
--- NOTE | 2022-12-17 06:00 | DI.RAD_ITS ---
Exam(s) XR PAIN CLINIC CERVICAL SP 2V EXAM: XR PAIN CLINIC CERVICAL SP 2V CLINICAL HISTORY: Dx: Cervical Spondylosis. TECHNIQUE: 2D and realtime digital imaging was performed. COMPARISON: No exams were available for comparison FINDINGS: Please see procedure note for details. Fluoro time: 59.7seconds RADIATION DOSE DELIVERED: gurjit Dill=8.2 mGy
[2022-12-17 08:08] VITALS: BP 134/80; PULSE 78; RESP 20; TEMP 36.6; O2SAT 96
--- NOTE | 2022-12-17 08:53 | PDOC.PAIN ---
Date of service: 12/17/22 Time of Service: 08:53 Pain Managment Procedure Note Procedure Note Procedure Note: PROCEDURE NOTE LEFT SIDED CERVICAL MEDIAL BRANCH BLOCKS Date of Service: December 17, 2022 Patient: Luna Linares Provider: Wong Stanton DO, MPH Luna Linares has been referred to the [facility] for cervical medial branch blocks. Pre-operative diagnosis: Cervical Spondylosis without Myelopathy Post-operative diagnosis: Same Pre-procedure pain: VAS= 7/10 COMMENTS: I previously evaluated her in the clinic. Her symptoms remain the same. Luna?was interviewed and the medical records were reviewed. There were no medical, pharmacologic, radiographic or other structural contraindications to attempting fluoroscopically guided local anesthetic cervical medial branch blocks. Risks and potential side effects were discussed. I also discussed the potential benefit(s) of the procedure with Luna, and voiced concerns were addressed. After Luna was completely informed about the procedure, the printed consent form was signed. A standard time-out procedure was performed. Luna was placed in the lateral decubitus position on the fluoroscopy table with the effected side up. Automated blood pressure cuff and pulse oximeter were applied. The skin entry points for approaching the anatomic target points of the segmental medial branches of Left C3,C4,C5, and C6 were identified with fluoroscopy and marked. The skin at the target site area was thoroughly prepared with Chlorhexadine. The skin was then draped. Next, a 25 gauge 3.5 spinal needle was placed under fluoroscopic guidance down on to the target point (the articular pillar) for each respective segmental medial branch. Position was confirmed in A/P and lateral views. Aspiration revealed no blood or clear fluid. Next, 0.25ml of omnipaque 240 was injected at each level. No contrast following a vascular or neural pattern was visualized under continuous fluoroscopy. Next, 0.25 ml of preservative-free 0.5% bupivicaine was injected at each level. (49 mls of Omnipaque was wasted) There was no unusual discomfort expressed by Luna. The needles were withdrawn without difficulty. Luna was observed and was without hemodynamic, neurologic, or allergic reactions.? Fluoroscopic images were digitally archived. Luna's vital signs were stable throughout the procedure and were as recorded in the docflowsheet by the nursing staff. Provacative testing using the Modified Heck's facet loading test Left side Directly before the block VAS (0-10) = 7/10 Five minutes after the block VAS (0-10) = 2/10 Percentage relief obtained with this diagnostic block 80% Any improved physical functioning directly after the blocks? Able to move the neck with ease Follow up plans and appointments were discussed with Luna. Luna was instructed to keep careful note of how the usual pain was modified by these injections. Specifically, to keep a pain diary for the next 4 hours using a numeric pain scale of 0-10 and report these results. Post procedure instruction was given as documented in the nursing documentation and having met discharge criteria, the patient was [facility]. Based on the medial branches blocked today, if Luna has adequate relief and we are able to proceed to radiofrequency ablation, the treatment should result in the denervation of the Left C3-C4 C4-C5, and C5-C6 facet joints. We would expect to denervate a total of 3 facets during the radiofrequency ablation. COMMENTS: No apparent complications. Post-procedure pain: VAS= 2/10 Luna will call back with 0-4 hour post-procedure pain scores. She continued to have right sided neck pain. She also had some dizziness, which she states is common for her. Her blood sugar was 223, which she states is about normal for her. We had a discussion about a proper diabetic diet. Once she felt back to normal, she was escorted to her and their vehicle. I personally performed the entire procedure. WONG STANTON DO, MPH ABPM&R-subspecialty board certification in Pain Medicine [facility] [facility]
[2022-12-17 09:23] VITALS: BP 142/98; PULSE 80; RESP 15; O2SAT 98
[2022-12-17] MEDS: Omnipaque 240 MG/ML 50 ML BTL IJ (09:34)
[2022-12-17] MEDS: Bupivacaine 0.5% Pres-Free 10 ML VIAL IJ (09:34)
== END 2022-12-17 07:56 | disposition home or self-care (01) ==
LOC: PC 07:56
PROVIDERS: PCP Registered Nurse; Visit Provider Preventive Medicine Occupational Medicine
DX: M47.812 Spondylosis without myelopathy or radiculopathy, cervical region (principal)
CPT/HCPCS: 00123; 64490; 64491; 64492; 72040; Q9967

== ENCOUNTER → 2023-01-13 02:17 | Outpatient (CLI) | payer OTHER, SELFPAY ==
--- NOTE | 2023-01-13 | DI.MRI_ITS ---
Exam(s) MR CERVICAL SPINE WO EXAM: MR CERVICAL SPINE WO CLINICAL HISTORY: CERVICAL SPONDYLOSIS M47.812 GAIT IMBALANCE HYPERREFLEXIA TECHNIQUE: Multiplanar multisequence MRI of the cervical spine was performed without intravenous con trast. COMPARISON: DX XR CERVICAL SPINE 4 OR 5 VIEWS from 12/04/2022 FINDINGS: CERVICOMEDULLARY JUNCTION: Intact with no evidence of cerebellar tonsillar ectopia. No obvious abnor mality of the odontoid process. No evidence of Chiari 1 malformation. CERVICAL SPINAL CORD: There is no abnormal signal in the cervical spinal cord and no evidence of foca l cord atrophy nor focal cord swelling. OSSEOUS:There are no cervical fractures evident. No significant osseous lesions in the cervical vert ebrae. Mild reversal of the normal curvature of the cervical spine noted. INDIVIDUAL LEVELS: C2-3: There is a developmentally small disc at this level as there is fusion across the right-sided f acet joints evident at this level and partial fusion across the left-sided facet joints. There is no disc herniation nor significant central canal stenosis at this level. Also no significant foraminal stenosis at this level evident. C3-4: This level exhibits chronic disc space narrowing and anterior osseous lipping. There is symmet rical annular bulging without a dominant disc herniation. There is effacement of the anterior thecal sac by mild annular bulging. There is mild central canal stenosis. There appears to be fusion acro ss right-sided facet joints at this level. Partial fusion across left-sided facet joint. There is s ignificant bilateral foraminal stenosis at this level. C4-5: This level exhibits chronic disc space narrowing and anterior osteophytes. Posteriorly there i s annular bulging and focal increased signal in the posterior left of center annulus with small protr usion at this level. There is effacement of the thecal sac at this level. There is mild-moderate ce ntral canal stenosis with AP antral canal measurement of 7 mm. Facet joint degenerative changes. Al so bilateral Luschka joint osteophytes evident at this level. There is also significant bilateral fo raminal stenosis at this level, compound by the prominent bilateral Luschka joint osteophytes at this level. C5-6: This level also exhibits chronic advanced disc space narrowing and anterior osteophytes. Poste riorly there are also bilateral prominent Luschka joint osteophytes at this level. Broad relatively symmetrical annular bulging with moderate central canal stenosis and AP central canal measurement of 7.5 mm. No focal disc herniation. Mild bilateral facet joint degenerative changes are evident. Sig nificant bilateral foraminal stenosis at this level, also compounded by prominent bilateral Luschka j oint osteophytes C6-7: This level exhibits moderate-advanced disc height loss . there is a shallow posterolateral left disc protrusion at this level which extends posteriorly 2.5 mm and is approximately 8 mm wide, mildl y indenting the anterior left thecal sac at this level but not extending into the exiting left neural foramen. Central canal dimensions are lower normal. There are no prominent Luschka joint osteophyt es evident at this level, as are evident at C4-5 and C5-6 levels. There are no degenerative changes in the right facet joint and only mild degenerative changes in the left facet joint at this level. M ild foraminal stenosis on the right side and no significant foraminal stenosis on the left side at th is level. C7-T1: Chronic disc space narrowing and anterior osteophytes. Posteriorly there is no significant di sc herniation. Central canal dimensions are normal .There are small bilateral Luschka joint osteophy giuseppe at this level. There is foraminal stenosis on the right side. Lesser foraminal stenosis on the left side. IMPRESSION: 1. Multilevel chronic degenerative disc disease as described per individual level above. There is an element of central spinal canal stenosis at C3-4 (mild), C4-5 (mild-moderate), and C5-6 (moderate) l evels. 2. There is a shallow posterolateral left disc herniation at C6-7 level. 3. Multilevel foraminal stenosis as described individually above, this compound by prominent multilev el Luschka joint osteophytes. 4. Multilevel facet arthropathy as described above. In addition, there is an element of multilevel facet fusion as described above in the upper cervical spine holes. There is flattening of the AP dimension of the cervical spinal cord at C4-5 and C5-6 levels due to th e central canal stenosis at this level. There is, however, no significant abnormal intra cord signal . No evidence of syringomyelia. DATA REPOSITORY:
== END ==
PROVIDERS: PCP Registered Nurse; Visit Provider Physician Assistant Surgical
DX: M47.812 Spondylosis without myelopathy or radiculopathy, cervical region (principal)
CPT/HCPCS: 72141